=== PATIENT | male | born 1980 | race Caucasian/White ===

== ENCOUNTER 2021-06-12 17:06 | Inpatient (IN) | payer BC ==
[~2021-06-12] VITALS: Ht 188 cm; Wt 93.0 kg
[2021-06-12] MEDS ORDERED: fentaNYL/PF 50MCG/1 ML 2ML syringe IV ONE (17:11)
[2021-06-12] MEDS ORDERED: ceFAZolin 1000mg inj IV ONE (17:15)
[2021-06-12] MEDS ORDERED: gentamicin in saline, iso-osm 80 MG/50 ML premix IV ONE (17:15)
[2021-06-12] MEDS ORDERED: bacitracin 15gm ointment TP ONE (17:15)
[2021-06-12] MEDS ORDERED: fentaNYL/PF 50MCG/1 ML 2ML syringe IV PRN (17:15)
[2021-06-12] MEDS ORDERED: ondansetron/PF 4mg/2ml inj IV ONE ×2 (17:15→19:05)
[2021-06-12] MEDS ORDERED: TETanus/Pertussis (Acell)/Diphther VAC/PF (Tdap-Adult) 0.5ml syringe IMVAC ONE (17:15)
--- NOTE | 2021-06-12 17:15 | NUR ---
PIV STARTED, COMPRESSION DRESSING PLACED ON LEFT LOWER LEG.
[2021-06-12 17:25] LABS: EOSINOPHILS # (AUTO) 0.4 X10'3 (0-0.9); WHITE BLOOD COUNT 7.4 X10'3 (4.5-11.0)
[2021-06-12] MEDS ORDERED: DEXTROSE 5% IV ONE (17:25)
[2021-06-12] MEDS ORDERED: WATER IV ONE (17:25)
[2021-06-12] MEDS ORDERED: GENTAMICIN IV ONE (17:25)
[2021-06-12] MEDS ORDERED: ceFAZolin 2gm in dextrose, iso 50 ML IV ONE (17:25)
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
[2021-06-12 17:31] LABS: BASOPHILS # (AUTO) 0.1 X10'3 (0-0.2); BASOPHILS % (AUTO) 0.7 % (0-1); EOSINOPHILS % (AUTO) 5.8 % (0-6); HEMATOCRIT 47.1 % (42.0-52.0); HEMOGLOBIN 16.7 g/dl (14.0-17.9); LYMPHOCYTES # (AUTO) 1.8 X10'3 (1.1-4.8); LYMPHOCYTES % (AUTO) 24.5 % (21-51); MEAN CORPUSCULAR HEMOGLOBIN 31.5 PG (27.0-31.0); MEAN CORPUSCULAR HGB CONC 35.4 g/dL (33.0-36.5); MEAN CORPUSCULAR VOLUME 88.9 FL (78-98); MEAN PLATELET VOLUME 7.8 FL (7.4-10.4); MONOCYTES # (AUTO) 0.8 X10'3 (0-0.9); MONOCYTES % (AUTO) 11.4 % (2-12); NEUTROPHILS # (AUTO) 4.3 X10'3 (1.8-7.7); NEUTROPHILS % (AUTO) 57.6 % (42-75); PLATELET COUNT 218 X10'3 (140-440); RED BLOOD COUNT 5.29 X10'6 (4.70-6.10); RED CELL DISTRIBUTION WIDTH 12.8 % (11.5-14.5)
[2021-06-12] MEDS ORDERED: iohexol 350MG/ML 100ml bottle IV ONE (17:33)
[2021-06-12 17:39] LABS: PARTIAL THROMBOPLASTIN TIME 24 SECONDS (22-32)
[2021-06-12 17:44] LABS: ALANINE AMINOTRANSFERASE 40 U/L (12-78); ALBUMIN 4.2 G/DL (3.4-5.0); ALBUMIN/GLOBULIN RATIO 1.3 (1.1-1.5); ALKALINE PHOSPHATASE 66 IU/L (46-116); ANION GAP 7 (8-16); ASPARTATE AMINO TRANSFERASE 24 U/L (10-37); BILIRUBIN,TOTAL 0.7 MG/DL (0.1-1.0); BLOOD UREA NITROGEN 10 MG/DL (7-18); CALCIUM 9.4 MG/DL (8.5-10.1); CHLORIDE 105 MMOL/L (99-107); CREATININE 1.25 MG/DL (0.60-1.10); GLUCOSE 119 MG/DL (70-104); POTASSIUM 4.2 MMOL/L (3.5-5.1); SODIUM 140 MMOL/L (135-145); TOTAL CARBON DIOXIDE 28.4 MMOL/L (24-32); TOTAL PROTEIN 7.5 G/DL (6.4-8.2); eGFR 65 ML/MIN
[2021-06-12 17:53] LABS: CKMB RELATIVE INDEX 0.9 RATIO (0-2.5); CREATINE KINASE 170 U/L (39-308); ETHANOL 0.092 GM/DL (0.0-0.010)
[2021-06-12] MEDS ORDERED: NO HOME MEDS (17:55)
--- NOTE | 2021-06-12 17:56 | NUR ---
RETURNED FROM CT, PT DOES NOT WANT ADDITIONAL PAIN MEDS AT THIS TIME.
[2021-06-12] MEDS ORDERED: ketorolac trometh. 30mg/ml inj. IV ONE (18:00)
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
[2021-06-12] MEDS ORDERED: HYDROcodone/acetaminophen 10/325mg tab PO ONE (19:05)
--- NOTE | 2021-06-12 19:07 | NUR ---
Patient reluctant to use IV narcotic pain medication. Pt agreed to oral narcotic pain control. New verbal order from MD for [place] 10 x1 and zofran 4 mg.
[2021-06-12] MEDS ORDERED: temazepam 15mg capsule PO PRN (21:00)
--- NOTE | 2021-06-12 21:32 | NUR ---
Patient had syncopal episode. Pt diaphoretic, dizzy, weak, and SBP 86. Pt placed in supine position, EKG ordered, MD notified. After position change Pt stated he felt better and blood pressure 119/64.
[2021-06-12] MEDS ORDERED: HYDROmorphone inj. 0.5 MG/0.5 ML DISP.SYRIN IV PRN (22:55)
[2021-06-12] MEDS ORDERED: diphenhydrAMINE 50 mg/ml inj IV PRN (22:55)
[2021-06-12] MEDS ORDERED: ondansetron/PF 4mg/2ml inj IV PRN (22:55)
[2021-06-12] MEDS ORDERED: mag hydrox/Alum hydrox/simeth 30ml oral suspension PO PRN (22:55)
[2021-06-12] MEDS ORDERED: acetaminophen 325mg tablet PO PRN ×2 (22:55)
[2021-06-12] MEDS ORDERED: bisacodyl 10mg suppository rectal RC PRN (22:55)
[2021-06-12] MEDS ORDERED: diphenhydrAMINE 25mg capsule PO PRN (22:55)
[2021-06-12] MEDS ORDERED: magnesium hydroxide 30ml (MOM) UD suspension PO PRN (22:55)
[2021-06-12] MEDS ORDERED: morphine 2 MG/ML inj. syringe IV PRN ×2 (22:55)
[2021-06-12] MEDS ORDERED: HYDROmorphone/PF 0.2 MG/ML SYRINGE IV PRN (22:55)
[2021-06-12] MEDS ORDERED: ondansetron 4mg rapidly disintigrating tab PO PRN (22:55)
[2021-06-12] MEDS ORDERED: HYDROcodone/acetaminophen 5mg/325mg tablet PO PRN (22:55)
[2021-06-12] MEDS ORDERED: acetaminophen 650mg rectal suppository RC PRN (22:55)
[2021-06-12 23:36] LABS: PHOSPHORUS 2.5 MG/DL (2.3-4.5)
[2021-06-12 23:43] LABS: MAGNESIUM 2.2 MG/DL (1.5-2.4)
--- NOTE | 2021-06-13 | NUR ---
Patient in room [facility]. I have received report from MAIKEL Hickman and had the opportunity to ask questions and assume patient care.
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
[2021-06-13 00:25] VITALS: BP 148/69
[2021-06-13] MEDS: vancomycin/NS 1 GM ADD-VANTAGE 250 ML IV SCH ×3 (00:57→22:05)
[2021-06-13] MEDS: normal saline 1000ml 1,000 ML IV SCH ×3 (00:58→18:55)
[2021-06-13] MEDS: piperacillin/tazo 4.5gm/100ml 100 ML IV SCH ×3 (03:51→16:31)
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
--- NOTE | 2021-06-13 04:35 | NUR ---
pt medicated for pain with po norco foot of bed elevated.
[2021-06-13] MEDS: HYDROcodone/acetaminophen 10/325mg tab PO PRN ×3 (04:38→17:28)
[2021-06-13 06:06] LABS: BASOPHILS % (AUTO) 0.7 % (0-1); EOSINOPHILS # (AUTO) 0.3 X10'3 (0-0.9); EOSINOPHILS % (AUTO) 4.7 % (0-6); HEMATOCRIT 44.5 % (42.0-52.0); HEMOGLOBIN 15.5 g/dl (14.0-17.9); LYMPHOCYTES # (AUTO) 1.1 X10'3 (1.1-4.8); LYMPHOCYTES % (AUTO) 16.7 % (21-51); MEAN CORPUSCULAR HEMOGLOBIN 31.5 PG (27.0-31.0); MEAN CORPUSCULAR HGB CONC 34.9 g/dL (33.0-36.5); MEAN CORPUSCULAR VOLUME 90.1 FL (78-98); MEAN PLATELET VOLUME 8.1 FL (7.4-10.4); MONOCYTES # (AUTO) 0.7 X10'3 (0-0.9); MONOCYTES % (AUTO) 10.6 % (2-12); NEUTROPHILS # (AUTO) 4.4 X10'3 (1.8-7.7); NEUTROPHILS % (AUTO) 67.3 % (42-75); PLATELET COUNT 196 X10'3 (140-440); RED BLOOD COUNT 4.94 X10'6 (4.70-6.10); RED CELL DISTRIBUTION WIDTH 13.1 % (11.5-14.5); WHITE BLOOD COUNT 6.5 X10'3 (4.5-11.0)
--- NOTE | 2021-06-13 06:10 | NUR ---
Patient in room [facility]. I have received report from MAIKEL Begum and had the opportunity to ask questions and assume patient care.
[2021-06-13 06:30] VITALS: BP 116/63
[2021-06-13 06:30] LABS: ALANINE AMINOTRANSFERASE 35 U/L (12-78); ALBUMIN 3.7 G/DL (3.4-5.0); ALBUMIN/GLOBULIN RATIO 1.2 (1.1-1.5); ALKALINE PHOSPHATASE 61 IU/L (46-116); ANION GAP 10 (8-16); ASPARTATE AMINO TRANSFERASE 29 U/L (10-37); BILIRUBIN,TOTAL 0.9 MG/DL (0.1-1.0); BLOOD UREA NITROGEN 13 MG/DL (7-18); BUN/CREATININE RATIO 11.5 (5.4-32.0); CALCIUM 8.5 MG/DL (8.5-10.1); CHLORIDE 108 MMOL/L (99-107); CREATININE 1.13 MG/DL (0.60-1.10); GLUCOSE 82 MG/DL (70-104); POTASSIUM 3.9 MMOL/L (3.5-5.1); SODIUM 145 MMOL/L (135-145); TOTAL CARBON DIOXIDE 26.7 MMOL/L (24-32); TOTAL PROTEIN 6.7 G/DL (6.4-8.2); eGFR 73 ML/MIN
--- NOTE | 2021-06-13 06:48 | NUR ---
Problems reprioritized. Patient report given, questions answered & plan of care reviewed with MAIKEL Dilladr.
[2021-06-13] MEDS: pantoprazole IV 40 MG in dextrose 5%-water 100 ML IV SCH (09:00)
[2021-06-13] MEDS: docusate sod 100mg capsule PO SCH ×2 (09:01→19:51)
[2021-06-13 11:00] VITALS: BP 124/62
--- NOTE | 2021-06-13 18:30 | NUR ---
Problems reprioritized. Patient report given, questions answered & plan of care reviewed with MAIKEL Zelaya.
[2021-06-13 19:46] VITALS: BP 109/70
[2021-06-14] VITALS: BP 110/61
[2021-06-14] MEDS: piperacillin/tazo 4.5gm/100ml 100 ML IV SCH ×2 (00:32→08:50)
[2021-06-14] MEDS: HYDROcodone/acetaminophen 10/325mg tab PO PRN ×4 (00:42→16:39)
[2021-06-14] MEDS: normal saline 1000ml 1,000 ML IV SCH (04:55)
[2021-06-14 05:46] LABS: BASOPHILS % (AUTO) 0.6 % (0-1); EOSINOPHILS # (AUTO) 0.3 X10'3 (0-0.9); EOSINOPHILS % (AUTO) 5.1 % (0-6); HEMATOCRIT 42.3 % (42.0-52.0); HEMOGLOBIN 14.9 g/dl (14.0-17.9); LYMPHOCYTES # (AUTO) 1.3 X10'3 (1.1-4.8); LYMPHOCYTES % (AUTO) 20.8 % (21-51); MEAN CORPUSCULAR HEMOGLOBIN 31.6 PG (27.0-31.0); MEAN CORPUSCULAR HGB CONC 35.2 g/dL (33.0-36.5); MEAN CORPUSCULAR VOLUME 89.7 FL (78-98); MEAN PLATELET VOLUME 7.8 FL (7.4-10.4); MONOCYTES # (AUTO) 0.7 X10'3 (0-0.9); MONOCYTES % (AUTO) 10.7 % (2-12); NEUTROPHILS # (AUTO) 3.9 X10'3 (1.8-7.7); NEUTROPHILS % (AUTO) 62.8 % (42-75); PLATELET COUNT 171 X10'3 (140-440); RED BLOOD COUNT 4.71 X10'6 (4.70-6.10); RED CELL DISTRIBUTION WIDTH 12.7 % (11.5-14.5); WHITE BLOOD COUNT 6.2 X10'3 (4.5-11.0)
[2021-06-14 06:01] LABS: ALANINE AMINOTRANSFERASE 30 U/L (12-78); ALBUMIN 3.1 G/DL (3.4-5.0); ALKALINE PHOSPHATASE 50 IU/L (46-116); ANION GAP 4 (8-16); ASPARTATE AMINO TRANSFERASE 33 U/L (10-37); BILIRUBIN,TOTAL 1.2 MG/DL (0.1-1.0); BLOOD UREA NITROGEN 10 MG/DL (7-18); BUN/CREATININE RATIO 8.9 (5.4-32.0); CALCIUM 8.3 MG/DL (8.5-10.1); CHLORIDE 105 MMOL/L (99-107); CREATININE 1.12 MG/DL (0.60-1.10); GLUCOSE 91 MG/DL (70-104); POTASSIUM 4.1 MMOL/L (3.5-5.1); SODIUM 138 MMOL/L (135-145); TOTAL CARBON DIOXIDE 28.9 MMOL/L (24-32); TOTAL PROTEIN 6.1 G/DL (6.4-8.2); eGFR 73 ML/MIN
--- NOTE | 2021-06-14 06:20 | NUR ---
Patient in room [facility]. I have received report from MAIKEL Zelaya and had the opportunity to ask questions and assume patient care.
[2021-06-14 06:30] VITALS: BP 103/60
[2021-06-14] MEDS ORDERED: heparin, porcine 5000 units/ml vial SQ SCH (08:00)
[2021-06-14] MEDS: pantoprazole IV 40 MG in dextrose 5%-water 100 ML IV SCH (08:50)
[2021-06-14] MEDS: docusate sod 100mg capsule PO SCH (08:51)
[2021-06-14 11:00] VITALS: BP 122/48
[2021-06-14] MEDS: vancomycin/NS 1 GM ADD-VANTAGE 250 ML IV SCH (11:22)
[2021-06-14] MEDS ORDERED: CEPH250T PO (16:10)
[2021-06-14] MEDS ORDERED: HYDR-3965 PO (16:10)
[2021-06-14] MEDS ORDERED: LACT1CAP26 PO (16:10)
[2021-06-14] MEDS ORDERED: PANT40TA54 PO (16:10)
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
[2021-06-14] MEDS ORDERED: lactobacillus rhamnosus 10,000 MMU CELLS/CAPSULE PO SCH (20:00)
[2021-06-14] MEDS ORDERED: VANCOMYCIN LEVEL IV ONE (22:30)
[2021-06-15] MEDS ORDERED: pantoprazole 40mg Tablet.DR PO SCH (07:30)
== END 2021-06-14 17:20 | disposition home or self-care (01) | DRG 563 ==
LOC: ER 17:07 → ED HOLD 22:58 → SUR 3N 06-13 00:20
PROVIDERS: ADMIT Family Medicine; ATTEND Family Medicine
PROC: BQ2S1ZZ Computerized Tomography (CT Scan) of Left Lower Extremity using Low Osmolar Contrast (ICD-10-PCS; principal; 2021-06-12)
DX: S82.832B Other fracture of upper and lower end of left fibula, initial encounter for open fracture type I or II (principal); I10 Essential (primary) hypertension; Z20.822 Contact with and (suspected) exposure to COVID-19; F10.920 Alcohol use, unspecified with intoxication, uncomplicated; N28.9 Disorder of kidney and ureter, unspecified; W34.09XA Accidental discharge from other specified firearms, initial encounter; Y93.89 Activity, other specified; Y92.89 Other specified places as the place of occurrence of the external cause; Y99.8 Other external cause status
CPT/HCPCS: 36415; 73610; 73706; 80053; 80320; 82550; 82553; 83735; 83874; 83880; 84100; 85025; 85610; 85730; 86885; 86900; 86901; 87081; 87635; 90471; 90715; 93005; 96365; 96366; 96368; 96375; 97116; 97161; 99285; C9113; C9803; G0378; J0690; J1580; J1644; J1885; J2270; J2405; J2543; J3010; J3370; J7030; J7060; Q9967